=== PATIENT | female | born 1990 | race Caucasian/White ===

== ENCOUNTER 2018-04-24 17:18 | Outpatient (CLI) | payer BC, OTHER ==
--- NOTE | 2018-05-10 14:07 | P.MSEPDOC ---
Presenting Problems - Arrival Data Date of Arrival on Unit: 04/24/18 Time of Arrival on Unit: 17:30 Mode of Transport: Ambulatory I agree with the RN Medical Screening Exam: Yes Risk & Benefit of care provided described in d/c instruction: Yes Diagnosis: GESTATIONAL DIABETES MELLITUS IN , UNSP CONTROL
== END 2018-04-24 18:00 | disposition home or self-care (01) ==
LOC: FBPOP 17:18
PROVIDERS: ATTEND Obstetrics & Gynecology
DX: O24.419 Gestational diabetes mellitus in pregnancy, unspecified control (principal); Z3A.00 Weeks of gestation of pregnancy not specified
CPT/HCPCS: 59025

== ENCOUNTER 2018-06-11 05:44 | Inpatient (IN) | payer BC, OTHER ==
[2018-06-11] MEDS ORDERED: CITRIC ACID-SODIUM CITRATE 15 ML CUP PO ONE (05:56)
[2018-06-11 06:09] VITALS: BMI 41.5
[2018-06-11] MEDS ORDERED: LACTATED RINGERS 1,000 ML IV SCH (06:15)
[2018-06-11] MEDS ORDERED: ceFAZolin 3 GM in SODIUM CHLORIDE 0.9% 100 ML IVPB ONE (06:15)
[2018-06-11 07:02] LABS: Anisocytosis Slight; Basophils % (A) 0 %; Eosinophils # (A) 0.1 k/uL (0-0.7); Eosinophils % (A) 1 %; HCT 32.8 % (34.0-46.0); Lymphocytes # (A) 1.6 k/uL (1.0-4.8); Lymphocytes % (A) 19 %; MCH 26.5 pg (25.0-35.0); MCHC 33.4 g/dL (31.0-37.0); MCV 79.3 fL (80.0-100.0); Mean Platelet Volume 9.5; Microcytosis Slight; Monocytes # (A) 0.4 k/uL (0-1.0); Monocytes % (A) 4 %; Neutrophils # (A) 6.2 k/uL (1.3-7.7); Neutrophils % (A) 74 %; Platelet Count 180 k/uL (150-450); Poikilocytosis Slight; RBC 4.14 m/uL (3.80-5.40); RDW 16.5 % (11.5-15.5); WBC 8.3 k/uL (3.8-10.6)
[2018-06-11 07:27] LABS: Glucose,Whole Blood 75 mg/dL (75-99)
[2018-06-11] MEDS ORDERED: OXYTOCIN 10 UNIT/ML 1 ML VIAL ONE (07:53)
[2018-06-11] MEDS ORDERED: NALBUPHINE 10 MG/ML VIAL (10ML MDV) ONE (07:53)
[2018-06-11] MEDS ORDERED: LACTATED RINGERS 1,000 ML BAG IV ONE (07:53)
[2018-06-11] MEDS ORDERED: ePHEDrine SULFATE/0.9% NACL/PF 50 MG/5 ML SYRINGE IV ONE (07:53)
[2018-06-11] MEDS ORDERED: MORPHINE SULFATE (PF) 0.3 MG/0.3 ML SYR ONE (07:53)
[2018-06-11] MEDS ORDERED: ONDANSETRON 4 MG/2 ML VIAL ONE (07:53)
[2018-06-11] MEDS ORDERED: KETOROLAC 30 MG/ML 1 ML VIAL ONE (07:53)
[2018-06-11] MEDS ORDERED: diphenhydrAMINE 50 MG CAP PO PRN (08:33)
[2018-06-11] MEDS ORDERED: METOCLOPRAMIDE 5 MG/ML 2 ML VIAL IVP PRN (08:33)
[2018-06-11] MEDS ORDERED: ZOLPIDEM 5 MG TAB PO PRN (08:33)
[2018-06-11] MEDS ORDERED: KETOROLAC 30 MG/ML 1 ML VIAL IVP PRN (08:33)
[2018-06-11] MEDS ORDERED: NALOXONE 0.4 MG/ML 1 ML VIAL IV PRN ×2 (08:33→08:48)
[2018-06-11] MEDS ORDERED: SIMETHICONE 80 MG CHEWABLE PO PRN (08:33)
[2018-06-11] MEDS ORDERED: diphenhydrAMINE 25 MG CAP PO PRN (08:33)
[2018-06-11] MEDS ORDERED: ONDANSETRON 4 MG/2 ML VIAL IVP PRN (08:33)
[2018-06-11] MEDS ORDERED: diphenhydrAMINE 50 MG/ML 1 ML VIAL IVP PRN ×3 (08:33→08:48)
[2018-06-11] MEDS ORDERED: ACETAMINOPHEN TAB 325 MG TAB PO PRN (08:33)
--- NOTE | 2018-06-11 08:36 | P.HPOB ---
History of Present Illness H&P Date: 06/11/18 Chief Complaint: 2 uterine at 40 weeks: Previous section Brynn is a 27-year-old with prior section who is 40 weeks gestation. Her course has been, complicated by a 1 gestational diabetes. She has however maintain her sugars under good control with diet adjustments. She did receive nonstress test and the latter part of the and otherwise did well with the . Pertinent labs included a positive blood type with Rh antibody with screen was negative. Rubella was immune, hepatitis B surface antigen groupie strep and HIV as well as RPR were all negative. heart tones were in the 140s to 150s this morning and category 1 tracing is noted prior to proceeding to the section. Risks/ benefits/alternatives to this procedure were discussed with patient in detail and all questions were answered for her prior to proceeding to the operating room. Past Medical History Past Medical History: No Reported History Additional Past Medical History / Comment(s): heartburn,migraines, GDM diet controlled, hx preeclampsia and HELLP syndrome with last History of Any Multi-Drug Resistant Organisms: None Reported Past Surgical History: Section Additional Past Surgical History / Comment(s): oral surgery, d&c Past Anesthesia/Blood Transfusion Reactions: No Reported Reaction Past Psychological History: No Psychological Hx Reported Smoking Status: Never smoker Past Alcohol Use History: None Reported Past Drug Use History: None Reported - Past Family History Mother Family Medical History: No Reported History Medications and Allergies Home Medications Medication Instructions Recorded Confirmed Type Pnv,Calcium 72/Iron/Folic Acid 1 tab PO DAILY 09/08/15 06/11/18 History [ Plus Tablet] Ranitidine HCl [Zantac] 150 mg PO BID 09/08/15 06/11/18 History Aspirin 81 mg PO DAILY 04/24/18 06/11/18 History Allergies Allergy/AdvReac Type Severity Reaction Status Date / Time No Known Allergies Allergy Verified 06/11/18 05:55 Exam Osteopathic Statement: *. No significant issues noted on an osteopathic structural exam other than those noted in the History and Physical/Consult. Vital Signs Temp Pulse Resp BP Pulse Ox 06/11/18 06:04 96.4 F L 95 16 122/88 99 Intake and Output 06/10/18 06/11/18 06/11/18 22:59 06:59 14:59 Other: # Voids 1 Weight 109.769 kg - OBG Physical Exam Breast: both: normal (no masses) Abdomen: bowel sounds normal, no diffuse tenderness, no bruit present, no guarding noted, no hepatomegaly, no splenomegaly, no mass Vulva: both: normal Vagina: normal moisture, no discharge Cervix: no lesion, no discharge Uterus: normal size, normal contour Adnexa: both: normal Anus/Rectum: normal perianal skin, no rectal mass, no hemorrhoids, heme negative Results Result Diagrams: 06/11/18 06:41 Abnormal Lab Results - Last 24 Hours (Table) 06/11/18 Range/Units 06:41 Hgb 11.0 L (11.4-16.0) gm/dL Hct 32.8 L (34.0-46.0) % MCV 79.3 L (80.0-100.0) fL RDW 16.5 H (11.5-15.5) %
--- NOTE | 2018-06-11 08:39 | P.OP ---
Date of Procedure: 06/11/18 Preoperative Diagnosis: Intrauterine at term: Gestational diabetes: Prior section Postoperative Diagnosis: Same Procedure(s) Performed: Repeat low transverse section Anesthesia: spinal Surgeon: Arturo Giordano Hide Dyer #1: Eric Crocker Estimated Blood Loss (ml): 500 IV fluids (ml): 1,000 Urine output (ml): 100 Pathology: none sent (Placenta) Condition: stable Disposition: floor Operative Findings: Male scores of 9 and 9 at one and 5 minutes respectively and a weight of 7 lbs. 9 oz. Description of Procedure: Patient was taken to the operating suite where a spinal anesthetic was found be adequate. She was prepped and draped in the normal sterile fashion and placed in dorsal supine position with leftward tilt. Initially a Pfannenstiel skin incision was made and this incision was then carried through to the underlying layer of the fascia was second knife. Fascia was then nicked in the midline and this opening was extended laterally with Feliz scissors. Superior and inferior aspect of this incision were then grasped tented up and bluntly and sharply dissected off the rectus muscles. Rectus muscles were then divided the midline and sharp dissection through the peritoneum was made. This opening was then extended superiorly and inferiorly with good visualization of both bowel bladder. Bladder blade was then placed and a bladder flap identified. It was entered sharply with Metzenbaum scissors and carried across face uterus but sponsors bluntly dissecting the bladder out of the operative field. Knife was then used to incise uterus this opening was fully extended with hemostat and bluntly. Head was then atraumatically delivered a nuchal cord 1 was easily reduced. Mouth and nares were bulb suctioned. Anterior and posterior shoulders were then delivered with gentle downward and upward traction followed by the remainder the baby. Umbilical cord was then allowed to pulsate for approximately 10 seconds then clamped and cut. Nursery personnel was present to assume care. Placenta was then delivered intact and Pitocin was added to the IV. Uterus was then exteriorized cleared of clots and debris and closed in 2 layers with 0 Vicryl suture. Once excellent hemostasis was obtained blood and debris was suctioned from the posterior cul-de-sac and the uterus was reinserted into the abdomen. Peritoneal layer was reapproximated with 0 Vicryl suture. Fascial layer was closed with 0 Vicryl suture. [place] were used to close the skin was some undermining of the adjacent tissues to help bring the skin together. Due to prior scarring along the incision line kyle were used as I was concerned type be unable to line up the incision was subcuticular stitch. Once procedure was completed, patient was taken from the recovery to the recovery room in stable and satisfactory condition. She tolerated surgery very well.
[2018-06-11] MEDS ORDERED: MORPHINE SULFATE 2 MG/ML SYRINGE IVP PRN (08:48)
[2018-06-11] MEDS: LACTATED RINGERS 1,000 ML IV SCH ×3 (12:17→22:28)
[2018-06-11 14:56] LABS: Hemoglobin A1C 5.4 % (4.0-6.0)
[2018-06-11] MEDS: SENNOSIDES-DOCUSATE SODIUM 1 EACH TAB PO SCH (19:51)
[2018-06-12 06:21] LABS: Anisocytosis Slight; Basophils % (A) 0 %; Eosinophils # (A) 0.1 k/uL (0-0.7); Eosinophils % (A) 1 %; HGB 9.8 gm/dL (11.4-16.0); Hypochromasia Slight; Lymphocytes # (A) 1.5 k/uL (1.0-4.8); Lymphocytes % (A) 15 %; MCH 26.4 pg (25.0-35.0); MCHC 32.6 g/dL (31.0-37.0); MCV 80.8 fL (80.0-100.0); Mean Platelet Volume 9.2; Monocytes # (A) 0.5 k/uL (0-1.0); Monocytes % (A) 5 %; Neutrophils # (A) 7.7 k/uL (1.3-7.7); Neutrophils % (A) 78 %; Platelet Count 168 k/uL (150-450); Poikilocytosis Slight; RBC 3.71 m/uL (3.80-5.40); WBC 9.9 k/uL (3.8-10.6)
[2018-06-12] MEDS: SENNOSIDES-DOCUSATE SODIUM 1 EACH TAB PO SCH ×2 (08:52→20:24)
[2018-06-12] MEDS: HYDROcodone/APAP 7.5-325MG 1 EACH TAB PO PRN ×3 (08:53→23:32)
--- NOTE | 2018-06-12 10:53 | P.PN ---
Progress Note - Text Anesthesia POD 1. Patient is status post section under spinal anesthesia with intra-thecal preservative free morphine 300 g. Mild pruritus, excellent post-op analgesia, and no headache or other complications.
[2018-06-12] MEDS: IBUPROFEN 600 MG TAB PO PRN (17:02)
[2018-06-13] MEDS: IBUPROFEN 600 MG TAB PO PRN (04:18)
[2018-06-13] MEDS: HYDROcodone/APAP 7.5-325MG 1 EACH TAB PO PRN (08:33)
[2018-06-13] MEDS: SENNOSIDES-DOCUSATE SODIUM 1 EACH TAB PO SCH (08:33)
--- NOTE | 2018-06-13 08:58 | P.DS ---
Providers Date of admission: 06/11/18 05:44 Expected date of discharge: 06/13/18 Attending physician: Arturo Giordano Primary care physician: Stated None Hospital Course: Brynn is doing very well post op day 2. She is ambulating, voiding, and she is tolerating her diet. She voices no complaints. She is requesting discharge home today. I'll signs are stable and afebrile. Heart regular, lungs clear, extremities without pain. Abdomen soft uterus is firm. Lochia is reported be light. Incision is otherwise intact with kyle in place and it is clean and dry. We'll plan removal on Sunday. Prescription for [place] and Motrin were provided as well as prescription for breast pump. All the questions are answered for her prior to discharge and she will follow up with me on Sunday. Patient Condition at Discharge: Good Plan - Discharge Summary New Discharge Prescriptions: New HYDROcodone/APAP 5-325MG [[place] 5-325] 1 tab PO Q4HR PRN #30 tab PRN Reason: Pain Ibuprofen [Motrin] 600 mg PO Q6HR PRN #30 tab PRN Reason: Pain No Action Ranitidine HCl [Zantac] 150 mg PO BID Pnv,Calcium 72/Iron/Folic Acid [ Plus Tablet] 1 tab PO DAILY Aspirin 81 mg PO DAILY Discharge Medication List Pnv,Calcium 72/Iron/Folic Acid [ Plus Tablet] 1 tab PO DAILY 09/08/15 [ History] Ranitidine HCl [Zantac] 150 mg PO BID 09/08/15 [History] Aspirin 81 mg PO DAILY 04/24/18 [History] HYDROcodone/APAP 5-325MG [[place] 5-325] 1 tab PO Q4HR PRN #30 tab 06/13/18 [Rx] Ibuprofen [Motrin] 600 mg PO Q6HR PRN #30 tab 06/13/18 [Rx] Follow up Appointment(s)/Referral(s): Arturo Giordano DO [Doctor of Osteopathic Medicine] - 06/17/18 Activity/Diet/Wound Care/Special Instructions: No heavy lifting, limit stairs and driving, and pelvic rest. If any high temperatures, heavy bleeding, or severe pain call my office. Follow up with me on Sunday for staple removal.
[2018-06-13 09:11] VITALS: BP 122/75; PULSE 79; RESP 18; TEMP 97.5
== END 2018-06-13 12:24 | disposition home or self-care (01) | DRG 787 ==
LOC: 4FBP 05:44
PROVIDERS: ADMIT Obstetrics & Gynecology; ATTEND Obstetrics & Gynecology
PROC: 10D00Z1 Extraction of Products of Conception, Low, Open Approach (ICD-10-PCS; principal; 2018-06-11 08:05)
DX: O34.211 Maternal care for low transverse scar from previous cesarean delivery (principal); O99.354 Diseases of the nervous system complicating childbirth; O24.420 Gestational diabetes mellitus in childbirth, diet controlled; O69.81X0 Labor and delivery complicated by cord around neck, without compression, not applicable or unspecified; O99.62 Diseases of the digestive system complicating childbirth; O99.72 Diseases of the skin and subcutaneous tissue complicating childbirth; K21.9 Gastro-esophageal reflux disease without esophagitis; G43.909 Migraine, unspecified, not intractable, without status migrainosus; L29.9 Pruritus, unspecified; Z37.0 Single live birth; Z3A.40 40 weeks gestation of pregnancy; Z79.82 Long term (current) use of aspirin
CPT/HCPCS: 83036; 85025; 86850; 86900; 86901; 88307

== ENCOUNTER 2023-11-02 14:57 | Emergency (ER) | payer OTHER ==
[2023-11-02 15:07] VITALS: TEMP 97.8
[2023-11-02] MEDS: PROPARACAINE 0.5% OPHTH DROPS 15 ML BTL BOTH EYES STA (16:16)
[2023-11-02] MEDS: FLUORESCEIN STRIPS 1 MG STRIP BOTH EYES ONE (16:17)
--- NOTE | 2023-11-02 16:51 | ED ---
General Adult HPI - General Chief complaint: Eye Problems Stated complaint: L sided facial numbness Time Seen by Provider: 11/02/23 15:36 Source: patient Mode of arrival: ambulatory Limitations: no limitations - History of Present Illness Initial comments: Dictation was produced using [employer] dictation software. please excuse any grammatical, word or spelling errors. Chief Complaint: 33-year-old female presents emergency department with left eye redness, left eye swelling History of Present Illness: Patient 33-year-old female she denies any signifi cant comorbidities. Presents emergency department with 1 day history of left eye redness left eye swelling. She states she feels a pressure in her eye. Patient states that her eye feels a little blurry. She does report some radiation of symptoms to her left ear and left forehead. 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 No obvious sick contacts. The ROS documented in this emergency department record has been reviewed and confirmed by me. Those systems with pertinent positive or negative responses have been documented in the HPI. All other systems are other negative and/or noncontributory. - Related Data Home Medications Medication Instructions Recorded Confirmed Pnv,Calcium 72/Iron/Folic Acid 1 tab PO DAILY 09/08/15 06/11/18 [ Plus Tablet] Ranitidine HCl [Zantac] 150 mg PO BID 09/08/15 06/11/18 Aspirin 81 mg PO DAILY 04/24/18 06/11/18 Previous Rx's Medication Instructions Recorded HYDROcodone/APAP 5-325MG [[place] 1 tab PO Q4HR PRN #30 tab 06/13/18 5-325] Ibuprofen [Motrin] 600 mg PO Q6HR PRN #30 tab 06/13/18 Polymyxin B-Trimeth Sulf Ophth 2 drops LEFT EYE Q6H 7 Days #10 ml 11/02/23 [Polytrim Opthalmic] Allergies Allergy/AdvReac Type Severity Reaction Status Date / Time No Known Allergies Allergy Verified 06/11/18 05:55 Review of Systems ROS Statement: Those systems with pertinent positive or pertinent negative responses have been documented in the HPI. ROS Other: All systems not noted in ROS Statement are negative. Past Medical History Past Medical History: No Reported History Additional Past Medical History / Comment(s): heartburn,migraines, GDM diet controlled, hx preeclampsia and HELLP syndrome with last History of Any Multi-Drug Resistant Organisms: None Reported Past Surgical History: Section Additional Past Surgical History / Comment(s): oral surgery, d&c Past Anesthesia/Blood Transfusion Reactions: No Reported Reaction Past Psychological History: No Psychological Hx Reported Past Alcohol Use History: None Reported Past Drug Use History: None Reported - Past Family History Mother Family Medical History: No Reported History General Exam - General Exam Comments Initial Comments: General: Well-appearing, nontoxic, no acute distress. Head: Normocephalic, atraumatic Eyes: PERRLA, EOMI, injection conjunctivitis to the left eye ENT: Airway patent Chest: Nonlabored breathing Skin: No visual rash, normal skin tone Neuro: Alert and oriented 3 Musculoskeletal: No gross abnormalities Limitations: no limitations Course Vital Signs 11/02/23 14:59 Temperature 97.8 F Pulse Rate 82 Respiratory 16 Rate Blood Pressure 147/94 O2 Sat by Pulse 98 Oximetry - Reevaluation(s) Reevaluation #1: 11/02/23 16:51 Left IOP is 21, no abnormal fluorescein uptake Medical Decision Making - Medical Decision Making Was pt. sent in by a medical professional or institution ( PA, COMMERCIAL SALES MANAGER, urgent care, hospital, or alf...) When possible be specific @ -No Did you speak to anyone other than the patient for history (EMS, parent, family, police, friend...)? What history was obtained from this source @ -No Did you review nursing and triage notes (agree or disagree)? Why? @ -I reviewed and agree with nursing and triage notes Were old charts reviewed (outside hosp., previous admission, EMS record, old EKG, old radiological studies, urgent care reports/EKG's, alf records)? Report findings @ -No old charts were reviewed Differential Diagnosis (chest pain, altered mental status, abdominal pain women, abdominal pain men, vaginal bleeding, musculoskeletal, weakness, fever, dyspnea, syncope, headache, dizziness, GI bleed, back pain, seizure, CVA, palpatations, mental health)? @ -Not applicable EKG interpreted by me (3pts min.). @ -None done X-rays interpreted by me (1pt min.). @ -None done CT interpreted by me (1pt min.). @ -CT orbit shows no acute processes U/S interpreted by me (1pt. min.). @ -None done What testing was considered but not performed or refused? (CT, X-rays, U/S, labs)? Why? @ -None What meds were considered but not given or refused? Why? @ -None Did you discuss the management of the patient with other professionals (professionals i.e. , PA, COMMERCIAL SALES MANAGER, lab, RT, psych nurse, social studies teacher, generator repairer, teacher, adult parole officer, watch caser)? Give summary @ -No Was smoking cessation discussed for >3mins.? @ -No Was critical care preformed (if so, how long)? @ -No Were there social determinants of health that impacted care today? How? (Homelessness, low income, unemployed, alcoholism, drug addiction, transportation, low edu. Level, literacy, decrease access to med. care, penitentiary, rehab)? @ -No Was there de-escalation of care discussed even if they declined (Discuss DNR or withdrawal of care, Hospice)? DNR status @ -No What co-morbidities impacted this encounter? (DM, HTN, Smoking, COPD, CAD, Cancer, CVA, ARF, Chemo, Hep., AIDS, mental health diagnosis, sleep apnea, morbid obesity)? @ -None Was patient admitted / discharged? Hospital course, mention meds given and route, prescriptions, significant lab abnormalities, going to OR and other pertinent info. @ -33-year-old female presents with left eye complaints. She complains of swelling. Her periorbital area is slightly edematous. Vital signs upon arrival are within acceptable limits. Fluorescein testing of the eye shows no abnormal uptake, IOP is 22. Patient sent for CT orbit for concerns of preseptal cellulitis. CT is negative. Patient given Polytrim eyedrops for conjunctivitis. Patient told to follow-up with primary care doctor. Undiagnosed new problem with uncertain prognosis? @ -No Drug Therapy requiring intensive monitoring for toxicity (Heparin, Nitro, Insulin, Cardizem)? @ -No Were any procedures done? @ -No Diagnosis/symptom? Acute, or Chronic, or Acute on Chronic? Uncomplicated (without systemic symptoms) or Complicated (systemic symptoms)? @ -Conjunctivitis Side effects of treatment? @ -No Exacerbation, Progression, or Severe Exacerbation? @ -No Poses a threat to life or bodily function? How? (Chest pain, [place], [place], pneumonia, PE, COPD, DKA, ARF, appy, cholecystitis, CVA, Diverticulitis, Homicidal, Suicidal, threat to staff... and all critical care pts) @ -No Disposition Clinical Impression: Conjunctivitis Disposition: HOME SELF-CARE Condition: Good Instructions (If sedation given, give patient instructions): Conjunctivitis (ED) Prescriptions: Polymyxin B-Trimeth Sulf Ophth [Polytrim Opthalmic] 2 drops LEFT EYE Q6H 7 Days #10 ml Is patient prescribed a controlled substance at d/c from ED?: No Referrals: None,Stated [Primary Care Provider] - 1-2 days Time of Disposition: 18:07
--- NOTE | 2023-11-02 17:15 | CT ---
EXAMINATION TYPE: CT orbits wo con CT DLP: 311.6 mGycm, Automated exposure control for dose reduction was used. DATE OF EXAM: 11/02/2023 5:07 PM COMPARISON: None. CLINICAL INDICATION:Female, 33 years old with history of left eye; PHH, woke up to a swollen left eye TECHNIQUE: Orbits: Axial CT with coronal and sagittal reformats through the orbits. No IV or oral contrast was u tilized. Findings: Orbital Contents: * Globes: Normal. * Preseptal Tissues: Normal and relatively symmetric on CT imaging. * Intraconal Structures: Normal. * Extraconal Structures and Lacrimal Glands: Normal. * Orbital [place]: Normal. Sella Turcica and Cavernous Sinuses: The sella turcica and cavernous sinus regions are intact and sym metric. Visualized Brain Parenchyma: Normal. Paranasal Sinuses and Surrounding Structures: Mild paranasal mucosal thickening most pronounced in th e anterior ethmoid air cells and left sphenoid sinus. Musculoskeletal: No evidence of fracture. Other: Soft tissues are within normal limits. IMPRESSION: 1. No evidence for orbital cellulitis or preseptal cellulitis. The soft tissues are relatively symme tric on CT imaging. 2. Mild paranasal sinus disease.
[2023-11-02] MEDS: POLYMYXIN B-TRIMETHOPRIM SULF (10,000-1) OPHTH DROPS 10 ML BTL LEFT EYE SCH (18:38)
[2023-11-02 18:59] VITALS: BP 128/85; PULSE 79; RESP 18
== END 2023-11-02 18:46 | disposition home or self-care (01) ==
LOC: EC 14:57
DX: H10.9 Unspecified conjunctivitis (principal)
CPT/HCPCS: 70480; 99283